=== PATIENT | female | born 1995 | race Caucasian/White ===

== ENCOUNTER 2017-12-20 22:56 | Emergency (ER) | payer OTHER ==
[2017-12-20] MEDS ORDERED: NS 1,000 ML IV ONE (23:10)
[2017-12-20] MEDS ORDERED: LORazepam 2 MG/ML INJ IVP ONE (23:10)
--- NOTE | 2017-12-20 23:12 | EDPHY ---
H & P Stated Complaint: "whole body shaking", anxious, smoked marijuana before feeling bad Source: Patient Exam Limitations: No limitations - Personal History LMP (Females 10-55): Now Current Tetanus Diphtheria and Acellular Pertussis (TDAP): Yes - Medical/Surgical History Hx Asthma: No Hx Chronic Respiratory Disease: No Hx Diabetes: No Hx Cardiac Disease: No Hx Renal Disease: No Hx Cirrhosis: No Hx Alcoholism: No Hx HIV/AIDS: No Hx Splenectomy or Spleen Trauma: No Other PMH: none. PCP none. [facility] UTD - Social History Smoking Status: Never smoked Time Seen by Provider: 12/20/17 23:08 HPI/ROS: HPI: This is a 22-year-old female who presents with Chief Complaint: "whole body shaking", anxious, smoked marijuana before feeling bad Location: Body Quality: shaking Duration: 1 hr prior to arrival Signs and Symptoms: no shortness of breath at rest, no shortness of breath on exertion, no cough, no chest pain, no palpitations, no lower extremity edema, no wheezing, no orthopnea, no paroxysmal nocturnal dyspnea, no fever, no injury/ trauma, no hemoptysis, no carpal pedal spasms Timing: Rapid onset Severity: Moderate Context: Patient is a student at [employer] and ingested edibles for the 1st time this evening around 7:30 p.m. She reports that over the last 1-2 hours she started to feel anxiety and her whole body has been shaking. This is the 1st time that she has ever ingested edibles before. She denies any fever, chest pain, shortness of breath, abdominal pain, nausea, no vomiting. Patient is currently on her menses. Modifying Factors: None Comment: ROS: A comprehensive 10 system review of systems is otherwise negative aside from elements mentioned in the history of present illness. MEDICAL/SURGICAL/SOCIAL HISTORY: Medical history: Generally healthy. Does not take any regular medications. Surgical history: Denies Social history: Denies alcohol and tobacco use. CONSTITUTIONAL: Anxious, extremely well-appearing young adult white female, awake and alert, no obvious distress HEENT: Atraumatic and normocephalic, PERRL, EOMI. Nares patent; no rhinorrhea; no nasal mucosal edema. Tympanic membranes clear. Oropharynx clear, no exudate and moist pink mucosa. Airway patent. No lymphadenopathy. No meningismus. Cardiovascular: Normal S1/S2, tachycardia, regular rhythm, without murmur rub or gallop. PULMONARY/CHEST: Symmetrical and nontender. Clear to auscultation bilaterally. Good air movement. No accessory muscle usage. ABDOMEN: Soft, nondistended, nontender, no rebound, no guarding, no peritoneal signs, no masses or organomegaly. No CVAT. EXTREMITIES: 2/2 pulses, strength 5/5, no deformities, no clubbing, no cyanosis or edema. NEUROLOGICAL: no focal neuro deficits. GCS 15. SKIN: Warm and dry, no erythema. no rash. Good capillary refill. (Christine Lima) Constitutional: Initial Vital Signs Temperature (C) 36.7 C 12/20/17 22:58 Heart Rate 124 H 12/20/17 22:58 Respiratory Rate 19 12/20/17 22:58 Blood Pressure 150/99 H 12/20/17 22:58 O2 Sat (%) 97 12/20/17 22:58 O2 Delivery Mode Room Air Allergies/Adverse Reactions: No Known Allergies Allergy (Unverified 12/20/17 22:57) Home Medications: Medication Instructions Recorded Cephalexin [Keflex] 500 mg PO QID #28 cap 11/18/15 Fluconazole [Diflucan (*)] 150 mg PO ONCE #2 tab 12/14/15 Ondansetron Odt [Zofran Odt 4 mg 4 mg PO Q4 PRN #12 tab 12/20/17 (*)] Medical Decision Making ED Course/Re-evaluation: PHYSICIAN DOCUMENTATION: The patient was evaluated and managed by the Physician Union Carpenter. My co- signature indicates that I have reviewed this chart and I agree with the findings and plan of care as documented. I am the secondary supervising physician. (Darleen Cook) Vital signs reviewed and show tachycardia. Placed on hospital monitor. Patient is experiencing the affects of marijuana. Given 1 L normal saline, IV Zofran 4 mg and IV Ativan 1 mg Monitored for several hours with improvement in symptoms. 0015: Reassessed patient with improvement in vital signs and resolution of tachycardia. Friend at bedside will stay with patient. Will give prepack for Zofran and school excuse for tomorrow. This patient was seen under the supervision of my secondary supervising physician. I evaluated care for this patient independently. Discussed this patient with Dr. Cook. . (Christine Lima) Differential Diagnosis: Differential diagnosis includes but is not limited to dehydration, anxiety, intoxicant use. (Christine Lima) - Data Points Medications Given: Discontinued Medications Sodium Chloride (Ns) 1,000 mls @ 0 mls/hr IV EDNOW ONE; Wide Open PRN Reason: Protocol Stop: 12/20/17 23:11 Last Admin: 12/20/17 23:17 Dose: 1,000 mls Lorazepam (Ativan Injection) 1 mg IVP EDNOW ONE Stop: 12/20/17 23:11 Last Admin: 12/20/17 23:16 Dose: 1 mg Ondansetron HCl (Zofran Odt 4 Mg Prepack#2) 1 btl TAKEHOME EDNOW ONE Stop: 12/20/17 23:54 Last Admin: 12/21/17 00:00 Dose: 1 btl Ondansetron HCl (Zofran) 4 mg IVP EDNOW ONE Stop: 12/21/17 00:07 Last Admin: 12/21/17 00:07 Dose: 4 mg Departure - Departure Disposition: Home, Routine, Self-Care Clinical Impression: Marijuana use Condition: Good Instructions: Ondansetron (By mouth), Cannabidiol (By mouth), Anxiety (ED) Additional Instructions: Rest as much as possible until you are feeling better. Consume a minimum of 8-10 glasses of water or electrolyte fluid replacement drinks that include Gatorade, Powerade, Pedialyte. Eat a bland diet for the next 48 hours and then slowly advance as tolerated. Referrals: [facility] [[facility]] - As per Instructions Stand Alone Forms: School Excuse Prescriptions: Ondansetron Odt [Zofran Odt 4 mg (*)] 4 mg PO Q4 PRN #12 tab PRN Reason: Nausea/Vomiting, Use 1st
[2017-12-20] MEDS ORDERED: ONDANSETRON 4MG PREPACK#2 BTL TAKEHOME ONE (23:53)
[2017-12-21] MEDS ORDERED: ONDANSETRON 4 MG/2 ML VIAL ONE (00:04)
[2017-12-21] MEDS ORDERED: ONDANSETRON 4 MG/2 ML VIAL IVP ONE (00:06)
[2017-12-21 00:10] VITALS: BP 114/79
== END 2017-12-21 00:12 | disposition home or self-care (01) ==
DX: G21.19 Other drug induced secondary parkinsonism (principal); F41.9 Anxiety disorder, unspecified; E86.9 Volume depletion, unspecified; F12.90 Cannabis use, unspecified, uncomplicated
CPT/HCPCS: 96374; J2060; J2405